=== PATIENT | male | born 1995 | race Caucasian/White ===

== ENCOUNTER 2017-11-18 07:19 | Emergency (ER) | payer OTHER ==
--- NOTE | 2017-11-18 07:51 | ERPHSYRPT ---
- History of Present Illness Time Seen by Provider: 11/18/17 07:46 Historian: patient Exam Limitations: no limitations Patient Subjective Stated Complaint: PT states "I was at work a couple of days ago and I was bending over and I am not sure if I pulled something or not. I am having pain on the right side. It only hurts when I move. THe pain goes from my lower right back into my stomach and down." Triage Nursing Assessment: Pt alert and oriented X 3, skin pwd PT ambulates with an upright steady gait, able to speak in clear full sentences. pt in no apparent distress. PT extremely anxious. Physician History: Patient is a 22-year-old male complaining that while lifting an object at work on Friday he felt pain in his right side of his abdomen. He thought he had just pulled a muscle. The pain would come and go and be especially prominent when he would move. He was able to sleep every night without problems. The pain happened again when he lifted some more objects at work on Friday and Friday. Today is Friday and when he got up this morning he bent over and said he had extreme pain in his right abdomen. All members of his family except his father and the patient have had their appendix out and he is worried that he has appendicitis. He denies fever or chills. He denies nausea, vomiting, or diarrhea. His past medical history is significant for abdominal surgery as an infant. He takes no medicines. Timing/Duration: day(s) (4), intermittent, sudden, worse Activities at Onset: activity Quality: sharpness Abdominal Pain Onset Location: other (right side) Pain Radiation: no radiation Severity of Pain-Max: severe Severity of Pain-Current: mild Modifying Factors: Improves With: analgesics (ibuprofen), movement Associated Symptoms: denies symptoms Previous symptoms: no prior history Allergies/Adverse Reactions: No Known Drug Allergies Allergy (Unverified 11/18/17 07:34) Home Medications: No Reportable Medications [No Reported Medications] 11/18/17 [History] Hx Tetanus, Diphtheria Vaccination/Date Given: No Hx Influenza Vaccination/Date Given: No Hx Pneumococcal Vaccination/Date Given: No Immunizations Up to Date: Yes - Review of Systems Constitutional: No Fever, No Chills Eyes: No Symptoms Ears, Nose, & Throat: No Symptoms Respiratory: No Cough, No Dyspnea Cardiac: No Chest Pain, No Edema, No Syncope Abdominal/Gastrointestinal: Abdominal Pain, No Nausea, No Vomiting, No Diarrhea Genitourinary Symptoms: No Dysuria Musculoskeletal: No Back Pain, No Neck Pain Skin: No Rash Neurological: No Dizziness, No Focal Weakness, No Sensory Changes Psychological: No Symptoms Endocrine: No Symptoms Hematologic/Lymphatic: No Symptoms Immunological/Allergic: No Symptoms All Other Systems: Reviewed and Negative - Past Medical History Pertinent Past Medical History: Yes Neurological History: No Pertinent History ENT History: No Pertinent History Cardiac History: No Pertinent History Respiratory History: No Pertinent History Endocrine Medical History: No Pertinent History GI Medical History: GERD History: No Pertinent History Psycho-Social History: Anxiety - Past Surgical History Past Surgical History: Yes Other Surgical History: reflux surgery - Social History Smoking Status: Never smoker Exposure to second hand smoke: Yes Drug Use: none Patient Lives Alone: No - Nursing Vital Signs Nursing Vital Signs: Initial Vital Signs Temperature 97.6 F 11/18/17 07:29 Pulse Rate 98 H 11/18/17 07:29 Respiratory Rate 18 11/18/17 07:29 Blood Pressure 157/96 11/18/17 07:29 O2 Sat by Pulse Oximetry 100 11/18/17 07:29 Pain Scale Pain Intensity 6 - Physical Exam General Appearance: no apparent distress, alert Eye Exam: PERRL/EOMI, eyes nml inspection Ears, Nose, Throat Exam: normal ENT inspection, pharynx normal, moist mucous membranes Neck Exam: normal inspection, non-tender, supple, full range of motion Respiratory Exam: normal breath sounds, lungs clear, No respiratory distress Cardiovascular Exam: regular rate/rhythm, normal heart sounds Gastrointestinal/Abdomen Exam: soft, normal bowel sounds, tenderness (mild tenderness to palpation of right abd.), No distention, No guarding, No rebound Rectal Exam: not done Back Exam: normal inspection, normal range of motion, No CVA tenderness, No vertebral tenderness Extremity Exam: normal inspection, normal range of motion, pelvis stable Neurologic Exam: alert, oriented x 3, cooperative, normal mood/affect, nml cerebellar function, sensation nml, No motor deficits Skin Exam: normal color, warm, dry SpO2 Interpretation: normal SpO2: 100 Oxygen Delivery: Room Air Ordered Tests: Active Orders 24 hr Category Date Time Status IV Insertion STAT Care 11/18/17 07:46 Active CBC W DIFF Stat Lab 11/18/17 08:01 Completed CMP Stat Lab 11/18/17 08:01 Completed LIPASE Stat Lab 11/18/17 08:01 Completed UA W/RFX UR CULTURE Stat Lab 11/18/17 08:38 Completed Medication Summary Discontinued Medications Generic Name Dose Route Start Last Admin Trade Name Milo PRN Reason Stop Dose Admin Sodium Chloride 1,000 mls @ 999 mls/hr 11/18/17 07:46 11/18/17 09:19 Sodium Chloride 0.9% 1000 Ml IV 11/18/17 08:46 Infused .Q1H1M STA Infusion Sodium Chloride Confirm 11/18/17 08:03 Sodium Chloride 0.9% 1000 Ml Administered 11/18/17 08:04 Dose 1,000 mls @ ud .ROUTE .STK-MED ONE Ketorolac Tromethamine 30 mg 11/18/17 07:46 11/18/17 08:04 Toradol 30 Mg Injection IV 11/18/17 07:47 30 mg STAT ONE Administration Ketorolac Tromethamine Confirm 11/18/17 08:03 Toradol 30 Mg Injection Administered 11/18/17 08:04 Dose 30 mg .ROUTE .STK-MED ONE Lab/Rad Data: Laboratory Result Diagrams 11/18/17 08:01 11/18/17 08:01 Laboratory Results 11/18/17 11/18/17 11/18/17 Range/Units 08:38 08:01 08:01 WBC 6.2 (4.0-10.5) K/mm3 RBC 5.68 H (4.1-5.6) M/mm3 Hgb 16.0 (12.5-18.0) gm/dl Hct 46.9 (42-50) % MCV 82.6 (78-100) fl MCH 28.1 (26-32) pg MCHC 34.1 (32-36) g/dl RDW 13.3 (11.5-14.0) % Plt Count 216 (150-450) K/mm3 MPV 9.9 H (6-9.5) fl Gran % 65.6 (36.0-66.0) % Eos # (Auto) 0.06 (0-0.5) Absolute Lymphs (auto) 1.40 (1.0-4.6) Absolute Monos (auto) 0.64 (0.0-1.3) Lymphocytes % 22.7 L (24.0-44.0) % Monocytes % 10.4 (0.0-12.0) % Eosinophils % 1.0 (0.00-5.0) % Basophils % 0.3 (0.0-0.4) % Absolute Granulocytes 4.06 (1.4-6.9) Basophils # 0.02 (0-0.4) Sodium 145 (137-145) mmol/L Potassium 3.5 (3.5-5.1) mmol/L Chloride 107 (98-107) mmol/L Carbon Dioxide 26 (22-30) mmol/L Anion Gap 15.7 H (5-15) MEQ/L BUN 22 H (9-20) mg/dL Creatinine 0.77 (0.66-1.25) mg/dL Estimated GFR > 60.0 ML/MIN Glucose 104 (74-106) mg/dL Calcium 10.5 H (8.4-10.2) mg/dL Total Bilirubin 1.10 (0.2-1.3) mg/dL AST 20 (17-59) U/L ALT 25 (0-50) U/L Alkaline Phosphatase 95 (38-126) U/L Serum Total Protein 8.0 (6.3-8.2) g/dL Albumin 4.8 (3.5-5.0) g/dL Lipase 35 (23-300) U/L Ur Collection Type CLEAN CATCH Urine Color YELLOW (YELLOW) Urine Appearance CLEAR (CLEAR) Urine pH 8.0 (5-6) Ur Specific [place] 1.010 (1.005-1.025) Urine Protein NEGATIVE (Negative) Urine Ketones NEGATIVE (NEGATIVE) Urine Blood NEGATIVE (0-5) Oliver/ul Urine Nitrite NEGATIVE (NEGATIVE) Urine Bilirubin NEGATIVE (NEGATIVE) Urine Urobilinogen NORMAL (0-1) mg/dL Ur Leukocyte Esterase NEGATIVE (NEGATIVE) Urine Culture Reflexed NO (NO) Urine Glucose NEGATIVE (NEGATIVE) mg/dL Specimen Received 11-18-1730 - Progress Progress: improved Progress Note: 11/18/17 09:58 toradol 30 mg IV. Counseled pt/family regarding: lab results, diagnosis - Departure Time of Disposition: 09:58 Departure Disposition: Home Clinical Impression: Abdominal muscle strain Condition: Stable Critical Care Time: No Referrals: VISHNU JANSEN [Primary Care Provider] - Additional Instructions: You have pain in one of your abdominal muscles. You were given Toradol 30 mg by IV in the ER. You were offered an ultrasound but you declined. You can continue to take ibuprofen as needed. You were given a work excuse for today. Follow-up with your primary medical doctor in one to 2 days if condition still persists.
[2017-11-18] MEDS ORDERED: Sodium Chloride 0.9% 1000 ML 1,000 ML ONE (08:03)
[2017-11-18] MEDS ORDERED: TORAdol 30 mg Injection ONE (08:03)
[2017-11-18] MEDS: TORAdol 30 mg Injection IV ONE (08:04)
[2017-11-18 08:05] LABS: BASOPHIL % 0.3 % (0.0-0.4); Basophil (Absolute #) 0.02 (0-0.4); Eosinophil (Absolute #) 0.06 (0-0.5); Granulocyte Absolute (ANC) 4.06 (1.4-6.9); Granulocytes % 65.6 % (36.0-66.0); Hematocrit 46.9 % (42-50); Lymphocytes % 22.7 % (24.0-44.0); Mean Cell Volume 82.6 fl (78-100); Mean Corpuscular Hemoglobin 28.1 pg (26-32); Mean Corpuscular Hgb Concent. 34.1 g/dl (32-36); Mean Platelet Volume 9.9 fl (6-9.5); Monocyte (Absolute #) 0.64 (0.0-1.3); Monocytes % 10.4 % (0.0-12.0); Platelet Count 216 K/mm3 (150-450); Red Blood Count 5.68 M/mm3 (4.1-5.6); Red Cell Distribution Width 13.3 % (11.5-14.0); White Blood Count 6.2 K/mm3 (4.0-10.5)
[2017-11-18] MEDS: Sodium Chloride 0.9% 1000 ML 1,000 ML IV STA (08:05)
[2017-11-18 08:19] LABS: ALBUMIN 4.8 g/dL (3.5-5.0); ALKALINE PHOSPHATASE 95 U/L (38-126); ANION GAP 15.7 MEQ/L (5-15); BLOOD UREA NITROGEN 22 mg/dL (9-20); CHLORIDE 107 mmol/L (98-107); Calcium 10.5 mg/dL (8.4-10.2); Carbon Dioxide 26 mmol/L (22-30); Creatinine 1 0.77 mg/dL (0.66-1.25); Glucose 104 mg/dL (74-106); LIPASE 35 U/L (23-300); Potassium 3.5 mmol/L (3.5-5.1); SGOT/AST 20 U/L (17-59); SGPT/ALT 25 U/L (0-50); SODIUM 145 mmol/L (137-145)
[2017-11-18 09:14] LABS: Appearance CLEAR (CLEAR); Bilirubin NEGATIVE (NEGATIVE); Blood NEGATIVE Ery/ul (0-5); Glucose NEGATIVE (NEGATIVE); Ketones NEGATIVE (NEGATIVE); Leukocyte Esterase NEGATIVE (NEGATIVE); Nitrite NEGATIVE (NEGATIVE); Protein,Urine Dip NEGATIVE (Negative); Urobilinogen NORMAL mg/dL (0-1)
[2017-11-18 10:00] VITALS: O2SAT 100
[2017-11-18 10:05] VITALS: BP 124/70; PULSE 64
== END 2017-11-18 10:07 | disposition home or self-care (01) ==
LOC: ED 07:19
DX: S39.011A Strain of muscle, fascia and tendon of abdomen, initial encounter (principal); X50.0XXA Overexertion from strenuous movement or load, initial encounter; X50.9XXA Other and unspecified overexertion or strenuous movements or postures, initial encounter; Y93.89 Activity, other specified; Y92.512 Supermarket, store or market as the place of occurrence of the external cause; Y99.0 Civilian activity done for income or pay; F41.9 Anxiety disorder, unspecified; K21.9 Gastro-esophageal reflux disease without esophagitis
CPT/HCPCS: 36000; 36415; 80053; 81002; 83690; 85025; 96360; 96374; 99284; J1885